=== PATIENT | female | born 1985 | race Caucasian/White ===

== ENCOUNTER → 2019-05-31 | Outpatient (CLI) | payer SELFPAY ==
--- NOTE | 2019-05-31 14:57 | RADIOLOGY REPORT (SQ) ---
EXAM DESCRIPTION: U/S [id number] TRNABD 1GES W/ODOP COMPLETED DATE/TIME: 05/31/2019 2:31 pm REASON FOR STUDY: ENCTR FOR SUPERVISION OF OTHER NORMAL , FIRST TRIMESTER (Z34.81) Z34.81 ENCOUNTER FOR SUPRVSN OF NORMAL , FIRST TRIM COMPARISON: None. TECHNIQUE: Transvaginal static and realtime grayscale images acquired of the pelvis. Additional vivian cted spectral and color Doppler images recorded. All images stored on PACs. CLINICAL AGE: Unknown. bHCG: Not available. LIMITATIONS: None. FINDINGS: UTERUS: No masses. No anomalies. GESTATIONAL SAC: Possible gestational sac, corresponding to a 5 week 2 day gestation. YOLK SAC: No. POLE: None present. RIGHT ADNEXA: Normal ovary with normal vascular flow. No adnexal free fluid. No adnexal masses. LEFT ADNEXA: Normal ovary with normal vascular flow. No adnexal free fluid. Complex cyst measuring 3.4 x 3.9 cm with a solid component along the wall. FREE FLUID: Free fluid in the posterior cul-de-sac. OTHER: No other significant finding. IMPRESSION: POSSIBLE EARLY INTRAUTERINE . BHCG LEVEL NOT AVAILABLE FOR CORRELATION WITH US FINDINGS. CONSIDER F/U BHCG AND/OR ULTRASOUND FOR VERIFICATION AND TO EXCLUDE ECTOPIC . FREE FLUID IS PRESENT IN THE POSTERIOR CUL-DE-SAC. THERE IS ALSO A COMPLEX CYST IN THE LEFT OVARY WI TH A SOLID COMPONENT. THIS REQUIRES FOLLOW-UP WELL. Trimester of : First trimester - 0 to 13 weeks. TECHNICAL DOCUMENTATION: JOB ID: [id number] [employer]- All Rights Reserved Reading location - IP/workstation name: [email or web address]
== END ==
LOC: RAD 13:52
PROVIDERS: ATTEND Midwife
DX: Z34.81 Encounter for supervision of other normal pregnancy, first trimester (principal)
CPT/HCPCS: 76801

== ENCOUNTER 2019-06-11 16:44 | Emergency (ER) | payer MEDICAID ==
[2019-06-11] MEDS ORDERED: DIPH/PERTUSS(ACELL)/TETANUS VAC/PF 0.5 ML SYR (>=10YO) IM ONE (16:54)
--- NOTE | 2019-06-11 16:55 | ER Document Report ---
ED Medical Screen (RME) - General Chief Complaint: Laceration Stated Complaint: FINGER LACERATION Time Seen by Provider: 06/11/19 16:54 Primary Care Provider: ROMEO MO CNM [Primary Care Provider] - Follow up as needed Mode of Arrival: Ambulatory Information source: Patient Notes: Patient was cutting bread yesterday slipped and cut her left hand. Injury occurred around 730 yesterday evening. Patient's tetanus is not currently up-to-date. No active bleeding. I have greeted and performed a rapid initial assessment of this patient. A comprehensive ED assessment and evaluation of the patient, analysis of test results and completion of the medical decision making process will be conducted by additional ED providers. TRAVEL OUTSIDE OF THE [place] IN LAST 30 DAYS: No Physical Exam - Vital signs Vitals: Temp Pulse Resp BP Pulse Ox 98.0 F 84 16 126/64 H 100 06/11/19 16:47 06/11/19 16:47 06/11/19 16:47 06/11/19 16:47 06/11/19 16:47 - General General appearance: Appears well, Alert Notes: 1.5 cm lack to the medial aspect of the left second metacarpal Course - Vital Signs Vital signs: Temp Pulse Resp BP Pulse Ox 98.0 F 84 16 126/64 H 100 06/11/19 16:47 06/11/19 16:47 06/11/19 16:47 06/11/19 16:47 06/11/19 16:47 Doctor's Discharge - Discharge Referrals: ROMEO MO CNM [Primary Care Provider] - Follow up as needed
[2019-06-11] MEDS ORDERED: LIDOCAINE 0.5%/EPINEPHRINE INJ 50 ML VIAL INJ ONE (17:21)
[2019-06-11] MEDS ORDERED: ACETAMINOPHEN 325 MG TABLET PO ONE (17:23)
--- NOTE | 2019-06-11 18:42 | ER Document Report ---
ED Wound - General Chief Complaint: Laceration Stated Complaint: FINGER LACERATION Time Seen by Provider: 06/11/19 16:54 Primary Care Provider: ROMEO MO CNM [NO LOCAL MD] - Follow up as needed Mode of Arrival: Ambulatory Notes: Patient is a 34-year-old female presents to the emergency department with a laceration to the proximal aspect of her lateral left index finger. States she sustained this laceration approximately 1930 last evening. States she was trying to cut something with a cutting board in her hand slipped. Patient voices she did place a bandage around it and thought that the bleeding was stopped overnight. States this morning the bleeding continued. States she could not get the bleeding to stop which is why she never really presented to the emergency room. Upon my assessment bleeding has ceased. Patient denies taking any anticoagulant medications. Patient voices she is unsure when her last tetanus was updated, states staff in the emergency department did update her tetanus. Patient is denying all other complaints. TRAVEL OUTSIDE OF THE [place] IN LAST 30 DAYS: No - Related Data Home Medications: Vitamins Past Medical History - General Information source: Patient - Social History Smoking Status: Current Every Day Smoker Family History: Reviewed & Not Pertinent Patient has suicidal ideation: No Patient has homicidal ideation: No Review of Systems - Review of Systems Constitutional: denies: Fever EENT: No symptoms reported Cardiovascular: No symptoms reported Respiratory: No symptoms reported Gastrointestinal: No symptoms reported Genitourinary: No symptoms reported Female Genitourinary: No symptoms reported Musculoskeletal: No symptoms reported Skin: See HPI Hematologic/Lymphatic: No symptoms reported Neurological/Psychological: No symptoms reported Physical Exam - Vital signs Vitals: Temp Pulse Resp BP Pulse Ox 98.0 F 84 16 126/64 H 100 06/11/19 16:47 06/11/19 16:47 06/11/19 16:47 06/11/19 16:47 06/11/19 16:47 - Notes Notes: GENERAL: Alert, interacts well. No acute distress. HEAD: Normocephalic, atraumatic. EYES: Pupils equal, round, and reactive to light. Extraocular movements intact. ENT: Oral mucosa moist, tongue midline. NECK: Full range of motion. Supple. Trachea midline. LUNGS: Clear to auscultation bilaterally, no wheezes, rales, or rhonchi. No respiratory distress. HEART: Regular rate and rhythm. No murmur ABDOMEN: Soft, non-tender. Non-distended. Bowel sounds present in all 4 quadrants. EXTREMITIES: Moves all 4 extremities spontaneously. No edema, normal radial and dorsalis pedis pulses bilaterally. No cyanosis. Full range of motion MCP, PIP, DIP joints noted left index finger. Capillary refill less than 2 seconds distally left index finger. BACK: no cervical, thoracic, lumbar midline tenderness. No saddle anesthesia, normal distal neurovascular exam. NEUROLOGICAL: Alert and oriented x3. Normal speech. cranial nerves II through XII grossly intact PSYCH: Normal affect, normal mood. SKIN: Warm, dry, normal turgor. Laceration noted horizontally near MCP joints laterally left index finger. Course - Re-evaluation Re-evalutation: 06/11/19 18:42 Laceration repaired, will place patient on antibiotics as discussed has been opened for an extended period of time. Was irrigated with copious amounts of normal saline solution. Bleeding initially noted, bleeding easily controlled. Discussed with patient at length signs and symptoms of infection risks and when to return to the emergency room. Patient stable for discharge. - Vital Signs Vital signs: Temp Pulse Resp BP Pulse Ox 98.0 F 84 16 126/64 H 100 06/11/19 16:47 06/11/19 16:47 06/11/19 16:47 06/11/19 16:47 06/11/19 16:47 Procedures - Laceration/Wound Repair Left index finger Wound length (cm): 2 Wound's Depth, Shape: Superficial Laceration pre-procedure: Sterile PPE donned, Sterile drapes applied, Shur-Clens applied Anesthetic type: 1% Lidocaine w/epi Volume Anesthetic (mLs): 5 Wound explored: Clean Irrigated w/ Saline (mLs): 1,000 Wound Debrided: Extensive Wound Repaired With: Sutures Suture Size/Type: 4:0, Ethilon Number of Sutures: 3 Post-procedure wound care: Sterile dressing applied Post-procedure NV exam normal: Yes Complications: No Discharge - Discharge Clinical Impression: Finger laceration Qualifiers: Encounter type: initial encounter Finger: index finger Damage to nail status: without damage Foreign body presence: without foreign body Laterality: left Qualified Code(s): S61.211A - Laceration without foreign body of left index finger without damage to nail, initial encounter Condition: Stable Disposition: HOME, SELF-CARE Instructions: Laceration Care ([facility]), Prophylactic Antibiotic ([facility]), Tetanus Immunization Given ([facility]), Soap Cleansing ([facility]) Additional Instructions: As we discussed you have been seen and treated in the emergency department for a laceration to your left index finger. The sutures do need to be removed in the next 10-14 business days. Please take antibiotics as we discussed. Please continue to wash the wound for redness, swelling, discharge, fever. These could be signs of infection and you should return to the emergency department. Prescriptions: Cephalexin Monohydrate [Keflex 500 mg Capsule] 500 mg PO BID 7 Days #14 capsule Referrals: ROMEO MO CNM [NO LOCAL MD] - Follow up as needed
[2019-06-11 18:59] VITALS: BP 128/65
== END 2019-06-11 18:59 | disposition home or self-care (01) ==
LOC: ER 16:44
PROC: 0HQGXZZ Repair Left Hand Skin, External Approach (ICD-10-PCS; principal; 2019-06-11)
DX: S61.211A Laceration without foreign body of left index finger without damage to nail, initial encounter (principal); W26.0XXA Contact with knife, initial encounter; Y93.G1 Activity, food preparation and clean up; F17.200 Nicotine dependence, unspecified, uncomplicated
CPT/HCPCS: 99282; 90471; 90715; 12001; J3490 ×2

== ENCOUNTER 2020-01-12 20:52 | Outpatient (CLI) | payer MEDICAID ==
[2020-01-12 21:44] LABS: APPEARANCE,URINE CLEAR; BILIRUBIN,URINE NEGATIVE (NEGATIVE); COLOR,URINE STRAW; GLUCOSE, URINE NEGATIVE (NEGATIVE); KETONES,URINE NEGATIVE (NEGATIVE); LEUKOCYTE ESTERASE,URINE NEGATIVE (NEGATIVE); NITRITE,URINE NEGATIVE (NEGATIVE); PROTEIN,URINE NEGATIVE (NEGATIVE); URINE SPECIFIC GRAVITY 1.005; UROBILINOGEN,URINE NEGATIVE mg/dL (<2.0)
[2020-01-12 21:49] LABS: ABSOLUTE EOSINOPHILS # (AUTO) 0.2 10^3/uL (0.0-0.6); ABSOLUTE LYMPHOCYTES (AUTO) 2.2 10^3/uL (0.5-4.7); ABSOLUTE MONOCYTES (AUTO) 0.8 10^3/uL (0.1-1.4); ABSOLUTE NEUT (AUTO) 4.6 10^3/uL (1.7-8.2); BASOPHILS % (AUTO) 0.5 % (0-2); HEMATOCRIT 32.1 % (36.0-47.0); LYMPHOCYTES % (AUTO) 27.8 % (13-45); MEAN CORPUSCULAR HEMOGLOBIN 31.4 pg (27.0-33.4); MEAN CORPUSCULAR HGB CONC 34.3 g/dL (32.0-36.0); MEAN CORPUSCULAR VOLUME 92 fl (80-97); MONOCYTES % (AUTO) 10.6 % (3-13); PLATELET COUNT 282 10^3/uL (150-450); RED CELL DISTRIBUTION WIDTH 14.1 % (11.5-14.0); SEGMENTED NEUTROPHILS % (AUTO) 59.1 % (42-78); TOTAL CELLS COUNTED % (AUTO) 100 %; WHITE BLOOD COUNT 7.8 10^3/uL (4.0-10.5)
[2020-01-12 22:01] LABS: UR PRO/CREAT RATIO RESULT 0.4 mg/mg (0.0-0.2); URINE CREATININE 35.1 mg/dL (16-327); URINE PROTEIN 15.7 mg/dL (<12)
[2020-01-12 22:06] LABS: ALBUMIN 2.9 g/dL (3.5-5.0); ALKALINE PHOSPHATASE 116 U/L (38-126); ANION GAP 7 (5-19); ASPARTATE AMINO TRANSFERASE 20 U/L (14-36); BILIRUBIN,TOTAL 0.2 mg/dL (0.2-1.3); BLOOD UREA NITROGEN 8 mg/dL (7-20); CARBON DIOXIDE 19 mmol/L (22-30); CHLORIDE 107 mmol/L (98-107); GLUCOSE 88 mg/dL (75-110); POTASSIUM 3.6 mmol/L (3.6-5.0); TOTAL PROTEIN 5.7 g/dL (6.3-8.2)
[2020-01-12 22:13] LABS: URINE AMPHETAMINES SCREEN NEGATIVE; URINE BARBITURATES SCREEN NEGATIVE; URINE BENZODIAZEPINES SCREEN NEGATIVE; URINE COCAINE SCREEN NEGATIVE; URINE MARIJUANA (THC) SCREEN NEGATIVE; URINE METHADONE SCREEN NEGATIVE; URINE PHENCYCLIDINE SCREEN NEGATIVE
--- NOTE | 2020-01-12 22:31 | Non Stress Test Report ---
Non Stress Test Datetime Report Generated by CPN: 01/12/2020 22:31 DEMOGRAPHIC EGA NST: 37.6 INDICATION Indication for Study (NST) Other: Labor check MONITORING Monitor Explained: Monitor Explained; Test Explained; Patient Verbalized Understanding Time on Monitor: 01/12/2020 21:10 Time off Monitor: 01/12/2020 21:53 NST Duration: 43 NST INTERVENTIONS NST Interventions: PO Hydration Physician Notified NST: Dr. Evans BABY A: [id number] BABY A Movement : Present Contraction Frequency : None FHR Baseline : 125 Accelerations : 15X15 Decelerations : None Variability : Moderate 6-25bpm NST Review: Meets Criteria for Reactive NST NST Review and Verified By : ISRA Leonard Results: Reactive NST REPORT Report Trigger: Send Report
== END 2020-01-12 22:26 | disposition home or self-care (01) ==
LOC: LC 20:52
PROVIDERS: ATTEND Student in an Organized Health Care Education/Training Program
DX: O47.1 False labor at or after 37 completed weeks of gestation (principal); O13.3 Gestational [pregnancy-induced] hypertension without significant proteinuria, third trimester; Z3A.37 37 weeks gestation of pregnancy
CPT/HCPCS: 36415; 80053; 80307; 81005; 82570; 83615; 84156; 84550; 85025

== ENCOUNTER 2020-01-14 08:03 | Inpatient (IN) | payer MEDICAID ==
[2020-01-14 09:25] LABS: 24 HOUR URINE PROTEIN RESULT 420 mg/day (42-225)
--- NOTE | 2020-01-14 09:45 | Admission Physical ---
Datetime Report Generated by CPN: 01/14/2020 09:45 CURRENT ADMISSION Chief Complaint: Signs/Symptoms Gestational HTN Chief Complaint Other: at 38.1 wks EGA with new diagnosis of mild preeclampsia diagnosed by 24 hour urine today. SHe has hx of two prior CS and desires BTL this time. TOday she complains of ROMANO, which is not improved with tylenol last night. No CP, SOB, RUQ pain, n/v or vision changes. SHe does reports swelling in legs and now in hands. Admit Impression : Repeat Section Admit Plan: Admit to Unit ALLERGIES Medication Allergies: Yes Medication Allergies: ibuprofen (01/12/2020) Latex: No Latex Allergies OBSTETRICAL HISTORY EDC: 01/27/2020 00:00 : 3 Para: 2 Term: 2 : 0 SAB: 0 IAB: 0 Ectopic: 0 Livin Cesareans: 2 VBACs: 0 Multiple Births: 0 Gestational Diabetes: No Rh Sensitization: No Incompetent Cervix: No LIDIA: No Infertility: No ART Treatment: No Uterine Anomaly: No IUGR: No Hx Previous C/S: No Macrosomia: No Hx Loss/Stillborn: No PIH: No Hx : No Placenta Previa/Abruption: No Depression/PP Depression: Yes PTL/PROM: No Post Hemorrhage: No Obstetrical History Comments: G1: 2013, 39 wks 7lbs 9 oz female G2: 2009, 40 wks, 7lbs 1 oz male, G3: current SEE RECORDS Alcohol: No Marijuana : No Cocaine: No Other Illicit Drugs: No Cigarettes: Current Everyday Smoker. [id number] MEDICAL HISTORY Diabetes: No Blood Transfusion: Yes Pulmonary Disease (Asthma, TB): No Breast Disease: No Hypertension: Yes Windows Vmware Engineer Surgery: Yes Heart Disease: No Hosp/Surgery: Yes Autoimmune Disorder: No Anesthetic Complications: No Kidney Disease: No Abnormal Pap Smear: No Neuro/Epilepsy: No Psychiatric Disorders: Yes Other Medical Diseases: No Hepatitis/Liver Disease: No Significant Family History: No Varicosities/Phlebitis: No Trauma/Violence : No Thyroid Dysfunction: No Medical History Comments: depression, anxiety INFECTIOUS HISTORY Gonorrhea: No Genital Herpes: No Chlamydia: No Tuberculosis: No Syphilis: No Hepatitis: No HIV/AIDS Exposure: No Rash or Viral Illness: No HPV: No PHYSICAL EXAM General: Normal HEENT: Normal Neurologic: Normal Thyroid: Normal Heart: Normal Lungs: Normal Breast: Normal Back: Normal Abdomen: Normal Genitourinary Exam: Normal Extremities: Abnormal DTRs: Normal Pelvic Type: Adequate Physical Exam Comments: BLE with +1 edema. NO clonus. DTR BLE are 2/4 FETUS A EGA: 38.1 Monitoring: External US FHR- Baseline: 125 Variability: Moderate 6-25bpm Accelerations: 15X15 Decelerations: None FHR Category: Category I Presentation: Vertex Admit Comment: at 38.1 wks with new onset preeclampsia, mild-- Dx by 24 hour urine protein of 420 and elevated blood pressures. Hx prior CS x2 and undesired fertility. Desires Tubal ligation. Plan for RCS and BTL -Admit to LDR -NPO since 0500 ( black coffee). Begin IVF bolus 1 liter LR and then 125cc/hr -Admitting labs with PIH labs ( blood only) -CEFM -Ancef 2 gms IV prior to OR -Abdomial prep -Plan for repeat CS and BTL PLANS FOR LABOR AND DELIVERY Labor and Delivery: None Pain Management: Spinal Feeding Preference: Breast Benefit of Breast Feed Discussed: Yes Circumcision: N/A INFORMED CONSENT Informed Consent Obtained: Section Delivery; Sterilization; Risks, Benefits and Alternatives Discussed Signature: with User ID: [email or web address] : with User ID: [email or web address]
[2020-01-14] MEDS ORDERED: CEFAZOLIN 2 GM/D5W RTU 2 GM/50 ML RTUPB IV ONE (09:47)
[2020-01-14] MEDS ORDERED: RINGERS SOLUTION,LACTATED 1,000 ML IV ONE (09:47)
[2020-01-14] MEDS ORDERED: CITRIC ACID/SODIUM CITRATE ORAL SOLN 15 ML UDCUP ONE (10:00)
[2020-01-14] MEDS ORDERED: CEFAZOLIN 1 GM/D5W RTU 2 GM/100 ML RTUPB IV ONE (10:00)
[2020-01-14 10:03] LABS: ABSOLUTE EOSINOPHILS # (AUTO) 0.1 10^3/uL (0.0-0.6); ABSOLUTE LYMPHOCYTES (AUTO) 1.7 10^3/uL (0.5-4.7); ABSOLUTE MONOCYTES (AUTO) 0.6 10^3/uL (0.1-1.4); ABSOLUTE NEUT (AUTO) 4.8 10^3/uL (1.7-8.2); BASOPHILS % (AUTO) 0.4 % (0-2); HEMATOCRIT 34.2 % (36.0-47.0); HEMOGLOBIN 11.4 g/dL (12.0-15.5); LYMPHOCYTES % (AUTO) 23.6 % (13-45); MEAN CORPUSCULAR HEMOGLOBIN 30.8 pg (27.0-33.4); MEAN CORPUSCULAR HGB CONC 33.3 g/dL (32.0-36.0); MEAN CORPUSCULAR VOLUME 93 fl (80-97); MONOCYTES % (AUTO) 8.4 % (3-13); PLATELET COUNT 277 10^3/uL (150-450); SEGMENTED NEUTROPHILS % (AUTO) 65.6 % (42-78); TOTAL CELLS COUNTED % (AUTO) 100 %; WHITE BLOOD COUNT 7.4 10^3/uL (4.0-10.5)
[2020-01-14] MEDS ORDERED: OXYTOCIN 10 UNIT/ML VIAL ONE (10:36)
[2020-01-14] MEDS ORDERED: FENTANYL CITRATE INJ/PF 100 MCG/2 ML AMPUL ONE (10:36)
[2020-01-14] MEDS ORDERED: PHENYLEPHRINE HCL INJ/PF 10 MG/1 ML SDV ONE (10:36)
[2020-01-14] MEDS ORDERED: KETOROLAC TROMETHAMINE INJ/PF 30 MG/1 ML SDV ONE (10:36)
[2020-01-14] MEDS ORDERED: ACETAMINOPHEN 1,000 MG/100 ML RTUPB IV ONE (10:37)
[2020-01-14] MEDS ORDERED: ONDANSETRON HCL INJ/PF 4 MG/2 ML SDV ONE (10:37)
[2020-01-14] MEDS ORDERED: OXYTOCIN/0.9 % SODIUM CHLORIDE 30 UNIT/500 ML RTUINJ ONE (12:08)
[2020-01-14] MEDS ORDERED: MORPHINE SULFATE 10 MG/ML INJ ONE ×2 (13:53→18:21)
--- NOTE | 2020-01-14 14:03 | Delivery Summary ---
Del Sum A-C Datetime Report Generated by CPN: 01/14/2020 14:03 DELIVERY PERSONNEL DELIVERY PERSONNEL: [id number] Delivery Doctor:: Mariposa Caputo MD Anesthesiologist:: Imtiaz Shea MD QUILT STUFFER:: Fifi Oglesby QUILT STUFFER Spectacle Truer:: Zahira Morgan RN Neonatal Nurse Practitioner:: ASTRID Lee Nursery Nurse:: Nusrat Christianson RN Real Time Analyst/BUSINESS RELATIONSHIP MANAGER: [facility] Real Time Analyst/BUSINESS RELATIONSHIP MANAGER: Johanne Kern, COMMERCIAL PROPERTY ADMINISTRATOR MATERNAL INFORMATION Delivery Anesthesia: Spinal Medications After Delivery: Pitocin 30 Units in 500ml NS/D5W Delivery QBL: 1440 Maternal Complications: None LABOR SUMMARY EDC: 01/27/2020 00:00 No. Babies in Womb: 1 Attempted: No Labor Anesthesia: None LABOR INFORMATION Reason for Induction: Not Applicable Oxytocin: N/A Group B Beta Strep: negative Steroids Given: None Reason Steroids Not Administered: Not Applicable MEMBRANES Membranes Rupture Method: Artificial Rupture of Membranes: 01/14/2020 11:14 Length of Rupture (hr): 0.05 Amniotic Fluid Color: Clear Amniotic Fluid Amount: Large Amniotic Fluid Odor: Normal STAGES OF LABOR Stage 3 hr: 0 Stage 3 min: 4 VAGINAL DELIVERY Episiotomy: None Laceration #1: None Laceration Repair: Not Applicable Sponge Count Correct: N/A Sharps Count Correct: N/A CSECTION DELIVERY Primary Indication: Repeat Elective CSection Urgency: Non-Scheduled CSection Incidence: Repeat Labor: No Labor Elective: Elective CSection Incision: Lower Uterine Transverse Sterilization Procedure: Ring and Clip BABY A INFORMATION Delivery Date/Time: 01/14/2020 11:17 Method of Delivery: Nurse Controlled Delivery: No Born in Route : No : N/A Forceps: N/A Vacuum Extraction: N/A Shoulder Dystocia : No PRESENTATION/POSITION BABY A Presentation: Breech Cephalic Presentation: N/A Breech Presentation: Double Footling PLACENTA INFORMATION BABY A Placenta Delivery Time : 01/14/2020 11:21 Placenta Method of Delivery: Manual Removal Placenta Status: Delivered SCORES BABY A Heart Rate 1 min: Slow, Below 100 bpm Resp Effort 1 min: Absent Reflex Irritability 1 min: Grimace Muscle Tone 1 min: Flaccid Color 1 min: Blue/Pale Resuscitation Effort 1 min: Tactile Stimulation; Oxygen; PPV/NCPAP SCORE 1 MIN: 2 Heart Rate 5 min: >100 bpm Resp Effort 5 min: Good Cry Reflex Irritability 5 min: Cough or Sneeze or Pulls Away Muscle Tone 5 min: Active Motion Color 5 min: Body [place], Extremities Blue SCORE 5 MIN: 9 INFANT INFORMATION BABY A Gestational Age at Delivery: 38.1 Gestational Status: Early Term- 37- 38.6 Weeks Infant Outcome : Liveborn Infant Condition : Stable Infant Sex: Female IDENTIFICATION BABY A Verification Date/Time: 01/14/2020 11:48 ID Band Number: [id number] Mother's Name Verified: Yes RN Verifying Infant: B Baidy RN Additional Verifying Personnel: T Kadeem RN WEIGHT/LENGTH BABY A Infant Birthweight (gm): 3000 Weight (lb): 6 Weight (oz): 10 Infant Length (in): 18.00 Length (cm): 45.72 CORD INFORMATION BABY A No. Cord Vessels: 3 Nuchal Cord : N/A Cord Blood Taken: Yes-For Eval (Mom's Blood Type - or O+) BABY B INFORMATION : N/A
[2020-01-14] MEDS ORDERED: SIMETHICONE 80 MG TAB.CHEW PO PRN (14:10)
[2020-01-14] MEDS ORDERED: OXYCODONE-ACETAMINOPHEN 5-325 MG TABLET PO PRN (14:10)
[2020-01-14] MEDS ORDERED: OXYTOCIN/0.9 % SODIUM CHLORIDE 30 UNIT/500 ML RTUINJ IV PRN (14:10)
[2020-01-14] MEDS ORDERED: ACETAMINOPHEN 325 MG TABLET PO PRN (14:10)
[2020-01-14] MEDS ORDERED: PROMETHAZINE HCL INJ 25 MG/1 ML VIAL IV PRN (14:10)
[2020-01-14] MEDS ORDERED: HYDROMORPHONE HCL INJ/PF 2 MG/ML AMPULE IV PRN (14:10)
[2020-01-14] MEDS ORDERED: RINGERS SOLUTION,LACTATED 1,000 ML IV PRN (14:10)
[2020-01-14] MEDS ORDERED: DIPH/PERTUSS(ACELL)/TETANUS VAC/PF 0.5 ML SYR (>=10YO) IM PRN (14:10)
[2020-01-14] MEDS ORDERED: MEASLES,MUMPS&RUBELLA VACC/PF 0.5 ML VIAL SUBCUT PRN (14:10)
[2020-01-14] MEDS: RINGERS SOLUTION,LACTATED 1,000 ML IV PRN ×2 (14:30→22:17)
--- NOTE | 2020-01-14 14:51 | Operative Report ---
Operative Report DATE OF SURGERY: 01/14/20 PREOPERATIVE DIAGNOSIS: Intrauterine pregancy at 38.1 wks EGA. Mild preeclamps ia, newly diagnosed. History of prior section. Unwanted fertility. Obesity POSTOPERATIVE DIAGNOSIS: Same as above with addition of adhesion between omentum and bladder OPERATION: Repeat section and bilateral tubal ligation SURGEON: KRISTAN MURRAY ANESTHESIA: Spinal TISSUE REMOVED OR ALTERED: Placenta COMPLICATIONS: None ESTIMATED BLOOD LOSS: 700 INTRAOPERATIVE FINDINGS: Adhesions between omentum and bladder along with anterior abdominal wall near bladder. Uterus normal, bilateral fallopian tubes and ovaries appear normal. Viable female infant in footling breech back down. Placenta occurs grossly normal. PROCEDURE: IV fluids: per anesthesia record Urinary output: 225 cc Position: To recovery room in stable condition Description of procedure: The patient was taken to the operating room and spinal anesthesia was administered and found to be adequate. She was then placed on the OR table in the supine position with a slight leftward tilt. Patient was prepped and draped in usual sterile fashion. Ancef 2 gms was given IV prior to the procedure for infection prophylaxis. Timeout was taken. A Pfannenstiel skin incision was then made approximately 3 cm above the pubic symphysis and carried down to level the rectus fascia. The rectus fascia was then nicked in the midline with a scalpel and the fascial incision was extended laterally with use of curved Baker scissors. Scar tissue encountered and taken down sharply. Bovie for control of small bleeding. The rectus fascia was then grasped with 2 Kocker clamps elevated and the underlying rectus muscle was dissected off both bluntly and sharply. Scar tissue noted as above. Any bleeding controlled with cautery. The rectus muscles were then split in the midline and the peritoneum was entered. The peritoneal incision was then extended by manually stretching the peritoneum. The bladder blade was positioned. Bladder flap created and bladder blade replaced. The bladder was noted to be out of harm's way. A scalpel was then used in the lower uterine for the hysterotomy, slowly until amniotomy was obtained a large amount of fluid was noted. The uterine incision was then manually stretched. The infant was noted to be in footling breech postion back down. Feet and legs delivered with minimal difficulty and bandage scissors were used to extend the incision laterally on the right. Once delivered to the pelvis, the was rotated back up and each arm was delivered by flexing the arm at the elbow. The head was then delivered easily. The cord was cut clamped and the infant was h anded off to the nurse awaiting. The placenta was manually delivered. Using a lap gauze the uterus was cleared of all clots and debris. The uterus was left in place and an Sridhar retractor was placed. The uterine incision was then closed with 0 Chromic suture in a running locked fashion. A second layer of the same suture was used in a running locked imbricated fashion. The uterine incision was inspected and noted to be hemostatic. The right fallopian tube was identified and traced to the fimbriated end. A filshie clip was placed approximately 2 cm from the uterine cornu. Clip surrounded the tube in its entirety. Blanching noted and hemostasis. The left fallopian tube was identified and traced to the fimbriated end. A filshie clip was placed approximately 2 cm from the uterine cornu. Clip surrounded the tube in its entirety. Blanching noted and hemostasis. Warm saline irrigation was used to clear all clots and debris from the abdomen. The uterine incision was inspected once more and noted to remain hemostatic. The Sridhar retractor was removed and the peritoneum was closed with 2-0 chromic in a running fashion. The rectus muscles were then reapproximated and the rectus fascia was closed with a #1 PDS in a running fashion. The subcutaneous tissue was then inspected and any bleeding was controlled with Bovie electrocautery. The subcutaneous tissue was then closed with 2-0 Plain Gut suture in a running fashion. The skin was then closed with 3-0 Monocryl in a running subcuticular fashion. The skin incision was then clean dried and Dermabond was applied over the skin incision. All instrument sponge and needle counts were correct x3 for the procedure the patient tolerated the procedure well. She will proceed to recovery room in stable conditionI
--- NOTE | 2020-01-14 14:54 | PDOC DELIVERY SUMMARY ---
Delivery Summary - Maternal Hx : III Hx Para: II Risk Factors: Previous , Pre-Eclampsia Fluids: Clear - Delivery Labor: Not In Labor Presentation: Breech Heart Rate Monitoring: Externally Support Person Present: No : Repeat Placenta: Within Normal Limits Number of Vessels (Cord): 3 Nuchal Cord: No Estimated Blood Loss: 700cc - Medications Type of Anesthesia:: Spinal - Delivery Personnel MD: KRISTAN MURRAY
[2020-01-14] MEDS: OXYCODONE-ACETAMINOPHEN 5-325 MG TABLET PO PRN ×2 (15:55→22:16)
[2020-01-14] MEDS: DOCUSATE SODIUM 100 MG CAPSULE PO SCH (18:27)
[2020-01-14] MEDS ORDERED: MORPHINE SULFATE 10 MG/ML INJ IV PRN (18:53)
[2020-01-14] MEDS: MORPHINE SULFATE 10 MG/ML INJ IV PRN (23:40)
[2020-01-15] MEDS: MORPHINE SULFATE 10 MG/ML INJ IV PRN ×2 (03:22→06:29)
[2020-01-15 07:05] LABS: HEMATOCRIT 33.9 % (36.0-47.0); HEMOGLOBIN 11.2 g/dL (12.0-15.5); MEAN CORPUSCULAR HEMOGLOBIN 31.1 pg (27.0-33.4); MEAN CORPUSCULAR HGB CONC 33.1 g/dL (32.0-36.0); MEAN CORPUSCULAR VOLUME 94 fl (80-97); PLATELET COUNT 266 10^3/uL (150-450); RED BLOOD COUNT 3.62 10^6/uL (3.72-5.28); RED CELL DISTRIBUTION WIDTH 14.2 % (11.5-14.0)
[2020-01-15] MEDS ORDERED: DIPHENHYDRAMINE HCL 25 MG CAPSULE PO SCH (09:45)
--- NOTE | 2020-01-15 10:14 | PDOC PROGRESS REPORT ---
Subjective-OB Progress Note for:: 01/15/20 Subjective: reports bleeding slowing, pain controlled now with morphine. states she has listed ibuprofen as an allergy but it only causes stomach pain. states percocet does not help, willing to try norco. Physical Exam (OB) Vital Signs: Temp Pulse Resp BP Pulse Ox 97.9 F 77 18 126/80 H 100 01/15/20 07:59 01/15/20 07:59 01/15/20 07:59 01/15/20 07:59 01/15/20 07:59 Intake & Output 01/14/20 01/15/20 01/16/20 06:59 06:59 06:59 Intake Total 973 Output Total 1225 Balance -252 Weight 107.3 kg - PIH/Pre-Eclampsia Clonus: Negative Headache: Absent Epigastric Pain: No Visual Changes: No - Dressing Removed: Yes Incision: Open, Draining - scant serosanguinous, Well Approximated - Abdomen Description: Tender, Soft, Round Hernia Present: No Fundal Description: Firm, Midline Fundal Height: u/u - u/2 - Abdominal Inspection: Other - rash (warm to touch, not itchy), not under where dsg was removed but all around. dr vilchis in to inspect. not continuing to back bu a little on thighs, benadryl po and cortisone cream ordered Distension: No distension - Extremities Lower extremities: Roger's sign - neg Calf: Normal, Nontender Objective-Diagnostic Laboratory: 01/15/20 06:35 01/14/20 01/15/20 09:47 06:35 WBC 7.0 RBC 3.62 L Hgb 11.2 L Hct 33.9 L MCV 94 MCH 31.1 MCHC 33.1 RDW 14.2 H Plt Count 266 Blood Type O POSITIVE Antibody Screen NEGATIVE Assessment and Plan(PN) - Time Spent with Patient Time with patient: Less than 15 minutes Medications reviewed and adjusted accordingly: Yes - Disposition Anticipated Discharge: Home Within: within 48 hours
[2020-01-15] MEDS: PRENATAL VITAMIN W DHA CAPSULE PO SCH (11:01)
[2020-01-15] MEDS: NAPROXEN 250 MG TABLET PO SCH ×2 (11:01→17:01)
[2020-01-15] MEDS: FERROUS SULFATE 325 MG TABLET PO SCH (11:04)
[2020-01-15] MEDS: DOCUSATE SODIUM 100 MG CAPSULE PO SCH ×2 (11:05→17:14)
[2020-01-15] MEDS: HYDROCORTISONE 1% CREAM 28.35 GM TP PRN ×2 (11:06→20:48)
[2020-01-15] MEDS: DIPHENHYDRAMINE HCL 25 MG CAPSULE PO PRN ×2 (11:25→19:20)
[2020-01-15] MEDS: HYDROCODONE/ACETAMINOPHEN 10-325 MG TABLET PO PRN (12:17)
[2020-01-15] MEDS ORDERED: NYSTATIN CREAM 15 GM ONE (20:42)
[2020-01-15] MEDS: NYSTATIN CREAM 15 GM TP SCH (20:48)
[2020-01-16] MEDS: DIPHENHYDRAMINE HCL 25 MG CAPSULE PO SCH ×2 (00:45→05:57)
[2020-01-16] MEDS: HYDROCODONE/ACETAMINOPHEN 10-325 MG TABLET PO PRN (03:10)
[2020-01-16 07:19] VITALS: BP 125/79
--- NOTE | 2020-01-16 09:24 | PDOC PROGRESS REPORT ---
Subjective-OB Progress Note for:: 01/16/20 Physical Exam (OB) Vital Signs: Temp Pulse Resp BP Pulse Ox 98.0 F 76 18 125/79 100 01/16/20 07:06 01/16/20 07:06 01/16/20 07:06 01/16/20 07:06 01/16/20 07:06 Intake & Output 01/15/20 01/16/20 01/17/20 06:59 06:59 06:59 Intake Total 973 Output Total 1225 Balance -252 Weight 107.3 kg - PIH/Pre-Eclampsia DTR's: 2 + Clonus: Negative Headache: Present Epigastric Pain: No Visual Changes: No - Dressing Removed: Yes Incision: Well Approximated - Lochia Lochia Amount: Scant < 10 ml Lochia Color: Rubra/Red - Abdomen Description: Tender, Soft Hernia Present: No Bowel Sounds: Normoactive Flatus Presence: Present Stool: No Fundal Description: Firm, Midline Fundal Height: u/u - u/2 - Skin Skin Moisture: Dry Skin Color: Flushed Skin note:: Has erythema on low abdomen, upper thighs extending to low back. Uniform, warm to touch, dry. Objective-Diagnostic Laboratory: 01/15/20 06:35 Assessment and Plan(PN) - Time Spent with Patient Medications reviewed and adjusted accordingly: Yes - Disposition Anticipated Discharge: Home
[2020-01-16] MEDS: FERROUS SULFATE 325 MG TABLET PO SCH (09:52)
[2020-01-16] MEDS: NAPROXEN 250 MG TABLET PO SCH (09:52)
[2020-01-16] MEDS: DOCUSATE SODIUM 100 MG CAPSULE PO SCH (09:53)
[2020-01-16] MEDS: PRENATAL VITAMIN W DHA CAPSULE PO SCH (09:53)
[2020-01-16] MEDS: NYSTATIN CREAM 15 GM TP SCH (09:54)
--- NOTE | 2020-01-16 09:58 | PDOC PROGRESS REPORT ---
Subjective-OB Progress Note for:: 01/16/20 Subjective: Ready for discharge. Physical Exam (OB) Vital Signs: Temp Pulse Resp BP Pulse Ox 98.0 F 76 18 125/79 100 01/16/20 07:06 01/16/20 07:06 01/16/20 07:06 01/16/20 07:06 01/16/20 07:06 Intake & Output 01/15/20 01/16/20 01/17/20 06:59 06:59 06:59 Intake Total 973 Output Total 1225 Balance -252 Weight 107.3 kg - PIH/Pre-Eclampsia DTR's: 2 + Clonus: Negative Headache: Present Epigastric Pain: No Visual Changes: No - Dressing Removed: Yes Incision: Well Approximated - Lochia Lochia Amount: Scant < 10 ml Lochia Color: Rubra/Red - Abdomen Description: Tender, Soft Hernia Present: No Fundal Description: Firm, Midline Fundal Height: u/u - u/2 - Skin Skin note:: Telephone consult w Dr Berrios-will not use oral steroids for probable allergic dermatitis secondary cleansing agent used in OR. Will discharge patient on Be nadryl and Hydrocortisone Cream. Objective-Diagnostic Laboratory: 01/15/20 06:35 Assessment and Plan(PN) - Time Spent with Patient Medications reviewed and adjusted accordingly: Yes - Disposition Anticipated Discharge: Home
[2020-01-16] MEDS ORDERED: HYDROCORTISONE 1% CREAM 28.35 GM TP SCH (10:00)
--- NOTE | 2020-01-16 10:24 | PDOC DISCHARGE SUMMARY ---
Impression - Admit/DC Date/PCP Admission Date/Primary Care Provider: 01/14/20 09:35 Discharge Date: 01/16/20 - Discharge Diagnosis (1) Delivery by elective caesarean section Is this a current diagnosis for this admission?: Yes (2) Depression with anxiety Is this a current diagnosis for this admission?: Yes (3) Dermatitis Is this a current diagnosis for this admission?: Yes (4) History of bariatric surgery Is this a current diagnosis for this admission?: Yes (5) Is this a current diagnosis for this admission?: Yes (6) Smoker Is this a current diagnosis for this admission?: Yes (7) Double footling breech presentation Is this a current diagnosis for this admission?: Yes (8) Gestational hypertension Is this a current diagnosis for this admission?: Yes - Additional Information Resuscitation Status: Full Code Discharge Diet: Regular Discharge Activity: Activity As Tolerated, Balance Activity w/Rest, No Lifting Over 10 Pounds, No Lifting/Push/Pulling, Non-Ambulatory Child, Pelvic Rest, Slowly Increase Activity, No tub bath Referrals: RAYNE MO MD [ACTIVE STAFF] - Prescriptions: Hydrocodone/Acetaminophen [[place] 10-325 mg Tablet] 1 tab PO Q4HP PRN #20 tablet PRN Reason: Diphenhydramine HCl [Benadryl 25 mg Capsule] 25 mg PO Q6 #30 capsule Hydrocortisone [Hydrocortisone 1% Cream 28.35 gm] 1 applic TP TID #1 tube Naproxen [Naprosyn 250 mg Tablet] 500 mg PO BIDBS #30 tablet Home Medications: No122/Iron/Folic Acid [ Multi Tablet] 1 each PO DAILY 01/12/20 Vit C/Ascorb Sod/Multivit-Min [Emergen-C 500 mg Chewable Tab] 1,000 mg PO DAILY 01/12/20 Vit D3/Folic Acid/B2/B6/B12 [Folgard Tablet] 1 each PO ONCE PRN 01/12/20 Diphenhydramine HCl [Benadryl 25 mg Capsule] 25 mg PO Q6 #30 capsule 01/16/20 Hydrocodone/Acetaminophen [[place] 10-325 mg Tablet] 1 tab PO Q4HP PRN #20 tablet 01/16/20 Hydrocortisone [Hydrocortisone 1% Cream 28.35 gm] 1 applic TP TID #1 tube 01/16/20 Naproxen [Naprosyn 250 mg Tablet] 500 mg PO BIDBS #30 tablet 01/16/20 HPI Gestational Age: 38.1 wks Reason(s) for Admission: Ceasarean Section-Repeat Procedures: Ultrasound Intrapartum Procedure(s): : Low Cervical, Transverse Complication(s): Other Complication(s) Note: Allergic dermatitis secondary to surgical prep. Results Laboratory Results: WBC 7.0 10^3/uL (4.0-10.5) 01/15/20 06:35 RBC 3.62 10^6/uL (3.72-5.28) L 01/15/20 06:35 Hgb 11.2 g/dL (12.0-15.5) L 01/15/20 06:35 Hct 33.9 % (36.0-47.0) L 01/15/20 06:35 MCV 94 fl (80-97) 01/15/20 06:35 MCH 31.1 pg (27.0-33.4) 01/15/20 06:35 MCHC 33.1 g/dL (32.0-36.0) 01/15/20 06:35 RDW 14.2 % (11.5-14.0) H 01/15/20 06:35 Plt Count 266 10^3/uL (150-450) 01/15/20 06:35 Lymph % (Auto) 23.6 % (13-45) 01/14/20 09:47 Harrison % (Auto) 8.4 % (3-13) 01/14/20 09:47 Eos % (Auto) 2.0 % (0-6) 01/14/20 09:47 Baso % (Auto) 0.4 % (0-2) 01/14/20 09:47 Absolute Neuts (auto) 4.8 10^3/uL (1.7-8.2) 01/14/20 09:47 Absolute Lymphs (auto) 1.7 10^3/uL (0.5-4.7) 01/14/20 09:47 Absolute Monos (auto) 0.6 10^3/uL (0.1-1.4) 01/14/20 09:47 Absolute Eos (auto) 0.1 10^3/uL (0.0-0.6) 01/14/20 09:47 Absolute Basos (auto) 0.0 10^3/uL (0.0-0.2) 01/14/20 09:47 Seg Neutrophils % 65.6 % (42-78) 01/14/20 09:47 Ur 24 Hour Volume 3000 mL 01/13/20 03:28 Ur Total Protein 24 Hr 420 mg/day (42-225) H 01/13/20 03:28 Urine Total Protein 14.0 mg/dL (<12) H 01/13/20 03:28 Blood Type O POSITIVE 01/14/20 09:47 Antibody Screen NEGATIVE 01/14/20 09:47 Plan Plan of Treatment: Follow up with [facility] in 1 wk. Pelvic rest x 4-6 wks. Time Spent: Less than 30 Minutes
== END 2020-01-16 12:12 | disposition home or self-care (01) | DRG 785 ==
LOC: LC 08:03 → LR 09:35 → 2S 14:10
PROVIDERS: ADMIT Obstetrics & Gynecology; ATTEND Obstetrics & Gynecology
PROC: 10D00Z1 Extraction of Products of Conception, Low, Open Approach (ICD-10-PCS; principal; 2020-01-14)
PROC: 0UL70CZ Occlusion of Bilateral Fallopian Tubes with Extraluminal Device, Open Approach (ICD-10-PCS; 2020-01-14)
DX: O14.04 Mild to moderate pre-eclampsia, complicating childbirth (principal); O32.8XX0 Maternal care for other malpresentation of fetus, not applicable or unspecified; O34.211 Maternal care for low transverse scar from previous cesarean delivery; Z3A.38 38 weeks gestation of pregnancy; O99.334 Smoking (tobacco) complicating childbirth; F17.210 Nicotine dependence, cigarettes, uncomplicated; F32.9 Major depressive disorder, single episode, unspecified; F41.9 Anxiety disorder, unspecified; O99.344 Other mental disorders complicating childbirth; Z37.0 Single live birth; O99.214 Obesity complicating childbirth; E66.9 Obesity, unspecified; O99.89 Other specified diseases and conditions complicating pregnancy, childbirth and the puerperium; N73.6 Female pelvic peritoneal adhesions (postinfective); Z88.6 Allergy status to analgesic agent; Z30.2 Encounter for sterilization; Z98.84 Bariatric surgery status; L27.1 Localized skin eruption due to drugs and medicaments taken internally; T50.905A Adverse effect of unspecified drugs, medicaments and biological substances, initial encounter; Y92.234 Operating room of hospital as the place of occurrence of the external cause; O99.72 Diseases of the skin and subcutaneous tissue complicating childbirth
CPT/HCPCS: 1961; 36415; 84156; 85025; 85027; 86592; 86850; 86900; 86901; 94760; 94799; 99140; J0131; J0690; J1885; J2270; J2370; J2405; J2590; J3010; J3490; J7120

== ENCOUNTER 2020-02-16 09:54 | Observation (INO) | payer MEDICAID ==
[2020-02-16] MEDS ORDERED: ACETAMINOPHEN 325 MG TABLET PO ONE ×2 (10:15→13:51)
[2020-02-16] MEDS ORDERED: NORMAL SALINE 1000 ML 1,000 ML IV ONE ×3 (11:00→18:05)
[2020-02-16] MEDS ORDERED: ONDANSETRON HCL INJ/PF 4 MG/2 ML SDV IV ONE (11:00)
[2020-02-16 11:31] LABS: ABSOLUTE LYMPHOCYTES (AUTO) 0.9 10^3/uL (0.5-4.7); ABSOLUTE MONOCYTES (AUTO) 0.5 10^3/uL (0.1-1.4); ABSOLUTE NEUT (AUTO) 6.9 10^3/uL (1.7-8.2); BASOPHILS % (AUTO) 0.3 % (0-2); EOSINOPHILS % (AUTO) 0.3 % (0-6); HEMATOCRIT 42.2 % (36.0-47.0); HEMOGLOBIN 14.2 g/dL (12.0-15.5); LYMPHOCYTES % (AUTO) 10.6 % (13-45); MEAN CORPUSCULAR HEMOGLOBIN 30.5 pg (27.0-33.4); MEAN CORPUSCULAR HGB CONC 33.6 g/dL (32.0-36.0); MEAN CORPUSCULAR VOLUME 91 fl (80-97); MONOCYTES % (AUTO) 6.2 % (3-13); PLATELET COUNT 279 10^3/uL (150-450); RED BLOOD COUNT 4.64 10^6/uL (3.72-5.28); RED CELL DISTRIBUTION WIDTH 15.4 % (11.5-14.0); SEGMENTED NEUTROPHILS % (AUTO) 82.6 % (42-78); TOTAL CELLS COUNTED % (AUTO) 100 %; WHITE BLOOD COUNT 8.4 10^3/uL (4.0-10.5)
[2020-02-16 11:37] LABS: ALKALINE PHOSPHATASE 127 U/L (38-126); ANION GAP 9 (5-19); ASPARTATE AMINO TRANSFERASE 24 U/L (14-36); BILIRUBIN,TOTAL 0.5 mg/dL (0.2-1.3); BLOOD UREA NITROGEN 9 mg/dL (7-20); CALCIUM 8.5 mg/dL (8.4-10.2); CARBON DIOXIDE 20 mmol/L (22-30); CHLORIDE 107 mmol/L (98-107); GLUCOSE 101 mg/dL (75-110); POTASSIUM 4.2 mmol/L (3.6-5.0); TOTAL PROTEIN 7.3 g/dL (6.3-8.2)
[2020-02-16 11:42] LABS: APPEARANCE,URINE SLIGHTLY-CLOUDY; BILIRUBIN,URINE NEGATIVE (NEGATIVE); COLOR,URINE YELLOW; GLUCOSE, URINE NEGATIVE (NEGATIVE); KETONES,URINE NEGATIVE (NEGATIVE); LEUKOCYTE ESTERASE,URINE NEGATIVE (NEGATIVE); NITRITE,URINE NEGATIVE (NEGATIVE); PROTEIN,URINE NEGATIVE (NEGATIVE); URINE SPECIFIC GRAVITY 1.013; UROBILINOGEN,URINE NEGATIVE mg/dL (<2.0)
[2020-02-16 13:44] LABS: A TYPE INFLUENZA AG NEGATIVE (NEGATIVE); B INFLUENZA AG NEGATIVE (NEGATIVE)
--- NOTE | 2020-02-16 13:55 | ER Document Report ---
ED General - General Chief Complaint: Cough Stated Complaint: COUGH/CONGESTION/NAUSEA/BACK PAIN Time Seen by Provider: 02/16/20 12:14 Notes: 34-year-old female with no pertinent past medical history presenting today with acute onset of fevers, chills, nausea, vomiting and back pain. States that she recently traveled to [place] on Thursday. States she was only there for a few hours. No known sick contacts. States she woke up with a fever this morning. She received Tylenol around 10:00. Lowered her temperature to around 100 but her temp is now elevated at 102. TRAVEL OUTSIDE OF THE [place] IN LAST 30 DAYS: No - Related Data Allergies/Adverse Reactions: ibuprofen Allergy (Verified 02/16/20 12:46) Past Medical History - Social History Smoking Status: Current Every Day Smoker Frequency of alcohol use: Occasional Family History: Reviewed & Not Pertinent Psychiatric Medical History: Reports: Hx Depression Past Surgical History: Reports: Hx Abdominal Surgery - gastric bypass, Hx Section - x3, Hx Cholecystectomy Physical Exam - Vital signs Vitals: Temp Pulse Resp BP Pulse Ox 102.1 F H 128 H 24 H 95/59 L 100 02/16/20 10:15 02/16/20 10:15 02/16/20 10:15 02/16/20 10:15 02/16/20 10:15 Course - Re-evaluation Re-evalutation: 02/16/20 18:37 Chest x-ray shows no opacities no acute radiographic findings. Patient remains febrile. She is provided Tylenol. Continues to be febrile 101. Her oxygen saturation was 93 on room air. She remains tachypneic and tachycardic. After 2 L bolus and Tylenol. Her venous blood gas shows a pH of 7.43 and a PCO2 of 32.6. Patient was evaluated she continues to be shaking in the bed. States she feels slightly better but she remains mildly tachycardic and tachypneic. O2 sats are now 100% on room air. I discussed with Dr. Stern who recommends CTA prior to calling Hospitalist. CTA was ordered due to her shortness of breath which showed no signs of pulmonary embolism or abnormal findings. Was informed by the nurse that the patient desires to leave. I discussed with patient that I have concerns that she is still febrile, tachycardic and tachypneic that she may be septic at this time and I have concerns that we do not know the cause of her fever. Discussed with her that he has the potential to get worse and to potentially if she leaves against medical advice. I asked directly if patient wants to be admitted she says no. she is agreeable to at least receiving antibiotic treatment at this time. I will go ahead and order vancomycin and Rocephin with additional fluids. I was notified by the nurse that patient is now agreeable to staying. I called the hospitalist who asked me to call back as there is a mild shift change. 02/16/20 20:[address] Macias and discussed patient. Is agreeable to admission of patient. 02/16/20 20:26 - Vital Signs Vital signs: Temp Pulse Resp BP Pulse Ox 99.2 F 117 H 21 H 133/91 H 98 02/16/20 17:10 02/16/20 15:18 02/16/20 19:00 02/16/20 17:37 02/16/20 19:00 - Laboratory Result Diagrams: 02/16/20 10:34 02/16/20 10:34 Laboratory results interpreted by me: 02/16/20 02/16/20 02/16/20 10:34 10:34 11:17 RDW 15.4 H Lymph % (Auto) 10.6 L Seg Neutrophils % 82.6 H VBG pH VBG pCO2 Sodium 136.2 L Carbon Dioxide 20 L Alkaline Phosphatase 127 H Urine Blood SMALL H 02/16/20 16:48 RDW Lymph % (Auto) Seg Neutrophils % VBG pH 7.43 H VBG pCO2 32.6 L Sodium Carbon Dioxide Alkaline Phosphatase Urine Blood Discharge - Discharge Clinical Impression: Fever and chills Condition: Stable Disposition: ADMITTED INPATIENT Admitting Provider: Colleen (Hospitalist) Unit Admitted: IMCU - 3rd floor
--- NOTE | 2020-02-16 15:20 | RADIOLOGY REPORT (SQ) ---
EXAM DESCRIPTION: CHEST SINGLE VIEW IMAGES COMPLETED DATE/TIME: 02/16/2020 2:54 pm REASON FOR STUDY: cough COMPARISON: None. EXAM PARAMETERS: NUMBER OF VIEWS: One view. TECHNIQUE: Single frontal radiographic view of the chest acquired. RADIATION DOSE: NA LIMITATIONS: None. FINDINGS: LUNGS AND PLEURA: No opacities, masses or pneumothorax. No pleural effusion. MEDIASTINUM AND HILAR STRUCTURES: No masses. Contour normal. HEART AND VASCULAR STRUCTURES: Heart normal in size. Normal vasculature. BONES: No acute findings. HARDWARE: None in the chest. OTHER: No other significant finding. IMPRESSION: NO ACUTE RADIOGRAPHIC FINDING IN THE CHEST. TECHNICAL DOCUMENTATION: JOB ID: [id number] 2010 [employer]- All Rights Reserved Reading location - IP/workstation name: [email or web address]
[2020-02-16 17:00] LABS: VENOUS BLOOD BASE EXCESS -2.6 mmol/L; VENOUS BLOOD PCO2 32.6 mmHg (35-63); VENOUS BLOOD PH 7.43 (7.30-7.42)
--- NOTE | 2020-02-16 17:54 | RADIOLOGY REPORT (SQ) ---
EXAM DESCRIPTION: CTA CHEST IMAGES COMPLETED DATE/TIME: 02/16/2020 5:27 pm REASON FOR STUDY: shortness of breath COMPARISON: Chest radiograph TECHNIQUE: CT scan of the chest performed using helical scanning technique with dynamic intravenous contrast injection. Images reviewed with lung, soft tissue and bone windows. Reconstructed coronal and sagittal MPR images reviewed. Additional 3 dimensional post-processing performed to develop Maximal Intensity Projection images (MN P). All images stored on PACS. All CT scanners at this facility use dose modulation, iterative reconstruction, and/or weight based d osing when appropriate to reduce radiation dose to as low as reasonably achievable (ALARA). [facility]: Dose Right [facility]: CareDose [facility]: Dose Right [facility]: Teradose 4D [facility]: ReDent Nova CONTRAST TYPE AND DOSE: contrast/concentration: Isovue 350.00 mmol/ml; Total Contrast Delivered: 67. 0 ml; Total Saline Delivered: 32.9 ml Contrast bolus adequate for pulmonary arteries and aorta. RENAL FUNCTION: None required. The patient is less than 50 years old. RADIATION DOSE: CT Rad equipment meets quality standard of care and radiation dose reduction techniq ues were employed. CTDIvol: 14.9 - 24.5 mGy. DLP: 1007 mGy-cm. . LIMITATIONS: None. FINDINGS: LUNGS AND PLEURA: No masses, infiltrates, or pneumothorax. No pleural effusions or pleura l calcifications. AORTA AND GREAT VESSELS: No aneurysm. Contrast bolus not optimized for the aorta. HEART: No pericardial effusion. No significant coronary artery calcifications. PULMONARY ARTERIES: No emboli visualized in the main pulmonary arteries or the segmental branches. HILAR AND MEDIASTINAL STRUCTURES: No identified masses or abnormal nodes. HARDWARE: None in the chest. UPPER ABDOMEN: No significant findings. Limited exam. THYROID AND OTHER SOFT TISSUES: No masses. No adenopathy. BONES: No acute or significant finding. 3D MIPS: Confirm above findings. OTHER: No other significant finding. IMPRESSION: NORMAL CTA OF THE CHEST. NO PULMONARY EMBOLI. COMMENT: Quality ID # [id number]: Final reports with documentation of one or more dose reduction techniques (e.g., Automated exposure control, adjustment of the mA and/or kV according to patient size, use of iterative reconstruction technique) TECHNICAL DOCUMENTATION: JOB ID: [id number] 2010 [employer]- All Rights Reserved Reading location - IP/workstation name: [email or web address]
[2020-02-16] MEDS ORDERED: VANCOMYCIN HCL INJ 1000 MG VIAL IV ONE (18:06)
[2020-02-16] MEDS ORDERED: CEFTRIAXONE INJ 1000 MG VIAL IV ONE (18:10)
[2020-02-16] MEDS ORDERED: IPRATROPIUM/ALBUTEROL 0.5-2.5 MG/3 ML AMPUL NEB PRN (19:22)
[2020-02-16] MEDS ORDERED: OXYCODONE-ACETAMINOPHEN 5-325 MG TABLET PO PRN (19:22)
[2020-02-16] MEDS ORDERED: ACETAMINOPHEN 325 MG TABLET PO PRN (19:22)
[2020-02-16] MEDS ORDERED: MAGNESIUM HYDROXIDE SUSP 30 ML UDCUP PO PRN (19:22)
[2020-02-16] MEDS ORDERED: NORMAL SALINE 1000 ML 1,000 ML IV PRN (19:22)
[2020-02-16] MEDS ORDERED: ONDANSETRON HCL INJ/PF 4 MG/2 ML SDV IV PRN (19:22)
--- NOTE | 2020-02-16 19:35 | EKG REPORT ---
SEVERITY:- OTHERWISE NORMAL ECG - SINUS TACHYCARDIA : Confirmed by: Namita Monk MD 16-Feb-2020 19:34:43
--- NOTE | 2020-02-16 19:59 | PDOC H&P ---
History of Present Illness History of Present Illness: LEONARDO JOHNSON is a 34 year old female no significant past medical history presenting to ED complaining of sudden onset fever, chills, generalized body ache, nonbloody diarrhea for the last 1 day. Denies any rhinorrhea, shortness of breath, chest pain, headache, nausea, vomiting, abdominal pain, urinary symptoms, loss of taste, loss of smell, numbness, tingling, focal weakness. Denies any exposure to anyone with similar symptoms, went to [place] recently with her family denies being exposed to anyone suspected of having exposure to COVID-19. None of her family members have similar symptoms. In ED she was noted to be tachypneic, tachycardic, with elevated temperature chest x-ray and CTA were unremarkable, no leukocytosis except for mild lymphopenia, given presentation patient was tested for COVID-19. Past Medical History Psychiatric Medical History: Reports: Depression Past Surgical History Past Surgical History: Reports: Section - x3, Cholecystectomy Social History Smoking Status: Current Every Day Smoker Family History Family History: Reviewed & Not Pertinent Parental Family History Reviewed: Yes Children Family History Reviewed: Yes Sibling(s) Family History Reviewed.: Yes Medication/Allergy Home Medications: No122/Iron/Folic Acid [ Multi Tablet] 1 each PO DAILY 01/12/20 Vit C/Ascorb Sod/Multivit-Min [Emergen-C 500 mg Chewable Tab] 1,000 mg PO DAILY 01/12/20 Vit D3/Folic Acid/B2/B6/B12 [Folgard Tablet] 1 each PO ONCE PRN 01/12/20 Diphenhydramine HCl [Benadryl 25 mg Capsule] 25 mg PO Q6 #30 capsule 01/16/20 Hydrocodone/Acetaminophen [[place] 10-325 mg Tablet] 1 tab PO Q4HP PRN #20 tablet 01/16/20 Hydrocortisone [Hydrocortisone 1% Cream 28.35 gm] 1 applic TP TID #1 tube 01/16/20 Naproxen [Naprosyn 250 mg Tablet] 500 mg PO BIDBS #30 tablet 01/16/20 Allergies/Adverse Reactions: ibuprofen Allergy (Verified 02/16/20 12:46) Review of Systems Review of Systems: as per hpi Physical Exam Vital Signs: Temp Pulse Resp BP Pulse Ox 99.2 F 117 H 21 H 133/91 H 98 02/16/20 17:10 02/16/20 15:18 02/16/20 19:00 02/16/20 17:37 02/16/20 19:00 Intake & Output 02/15/20 02/16/20 02/17/20 06:59 06:59 06:59 Intake Total 3000 Balance 3000 Weight 93.894 kg General appearance: PRESENT: no acute distress, obese Head exam: PRESENT: atraumatic, normocephalic Respiratory exam: PRESENT: clear to auscultation mitch, tachypnea. ABSENT: rales, rhonchi, wheezes Cardiovascular exam: PRESENT: RRR, tachycardia. ABSENT: diastolic murmur, rubs, systolic murmur GI/Abdominal exam: PRESENT: normal bowel sounds, soft. ABSENT: distended, guarding, mass, organolmegaly, rebound, tenderness Extremities exam: PRESENT: full ROM. ABSENT: calf tenderness, clubbing, pedal edema Neurological exam: PRESENT: alert, awake, oriented to person, oriented to place, oriented to time, oriented to situation, CN II-XII grossly intact. ABSENT: motor sensory deficit Skin exam: PRESENT: dry, intact, warm. ABSENT: cyanosis, rash Results Laboratory Results: 02/16/20 10:34 02/16/20 10:34 02/16/20 02/16/20 02/16/20 10:34 10:34 10:34 WBC 8.4 RBC 4.64 Hgb 14.2 Hct 42.2 MCV 91 MCH 30.5 MCHC 33.6 RDW 15.4 H Plt Count 279 Seg Neutrophils % 82.6 H VBG pH VBG pCO2 VBG HCO3 VBG Base Excess Sodium 136.2 L Potassium 4.2 Chloride 107 Carbon Dioxide 20 L Anion Gap 9 BUN 9 Creatinine 0.96 Est GFR ( Amer) > 60 Glucose 101 Lactic Acid Calcium 8.5 Total Bilirubin 0.5 AST 24 Alkaline Phosphatase 127 H Total Protein 7.3 Albumin 4.0 Lipase 105.5 Urine Color Urine Appearance Urine pH Ur Specific [place] Urine Protein Urine Glucose (UA) Urine Ketones Urine Blood Urine Nitrite Ur Leukocyte Esterase Urine WBC (Auto) Urine RBC (Auto) 02/16/20 02/16/20 02/16/20 11:17 15:04 16:48 WBC RBC Hgb Hct MCV MCH MCHC RDW Plt Count Seg Neutrophils % VBG pH 7.43 H VBG pCO2 32.6 L VBG HCO3 21.0 VBG Base Excess -2.6 Sodium Potassium Chloride Carbon Dioxide Anion Gap BUN Creatinine Est GFR ( Amer) Glucose Lactic Acid 1.1 Calcium Total Bilirubin AST Alkaline Phosphatase Total Protein Albumin Lipase Urine Color YELLOW Urine Appearance SLIGHTLY-CLOUDY Urine pH 6.0 Ur Specific [place] 1.013 Urine Protein NEGATIVE Urine Glucose (UA) NEGATIVE Urine Ketones NEGATIVE Urine Blood SMALL H Urine Nitrite NEGATIVE Ur Leukocyte Esterase NEGATIVE Urine WBC (Auto) 1 Urine RBC (Auto) 1 02/16/20 10:34 Creatine Kinase 49 Impressions: Chest X-Ray 02/16/20 13:50 IMPRESSION: NO ACUTE RADIOGRAPHIC FINDING IN THE CHEST. Chest/Abdomen CTA 02/16/20 16:48 IMPRESSION: NORMAL CTA OF THE CHEST. NO PULMONARY EMBOLI. Assessment and Plan - Diagnosis (1) Acute respiratory failure with hypoxia Is this a current diagnosis for this admission?: Yes Plan: COVID suspect given presentation. Influenza type A/B negative. Chest x-ray and CTA negative for any acute abnormalities. Admit to IMCU, azithromycin, PRN duo nebs, supplemental oxygen, incentive spirometry and flutter valve. Patient already received 1 dose of vancomycin and Rocephin in ED. Follow-up COVID serology. Follow-up blood culture. (2) Fever and chills Is this a current diagnosis for this admission?: Yes Plan: As per #1. Continue as needed Tylenol and cooling measures. (3) Tobacco abuse Is this a current diagnosis for this admission?: Yes Plan: Counseled on quitting. NicoDerm patch will be provided. (4) Diarrhea Qualifiers: Diarrhea type: presumed infectious Qualified Code(s): R19.7 - Diarrhea, unspecified Is this a current diagnosis for this admission?: Yes Plan: Possibly manifestation of COVID. Denies any recent travel except for going to the beach with family, denies being exposed to anybody with similar symptoms. Denies trying any new restaurants or exotic foods. Monitor volume status and electrolytes replace as needed. Supportive measures. Stool ova and parasite, stool WBC and Gram stain.
[2020-02-16] MEDS ORDERED: AZITHROMYCIN 500 MG in DEXTROSE 5%-WATER 250 ML IV SCH (22:00)
[2020-02-16] MEDS: FAMOTIDINE 20 MG TABLET PO SCH (23:20)
[2020-02-17] MEDS ORDERED: METOPROLOL TARTRATE PF/INJ 5 MG/5 ML SDV IV PRN (00:06)
[2020-02-17] MEDS ORDERED: HYDRALAZINE HCL INJ/PF 20 MG/1 ML SDV IV PRN (00:06)
[2020-02-17] MEDS ORDERED: KETOROLAC TROMETHAMINE INJ/PF 30 MG/1 ML SDV IV ONE (00:45)
[2020-02-17 06:16] LABS: ABSOLUTE LYMPHOCYTES (AUTO) 1.2 10^3/uL (0.5-4.7); ABSOLUTE MONOCYTES (AUTO) 0.4 10^3/uL (0.1-1.4); ABSOLUTE NEUT (AUTO) 4.6 10^3/uL (1.7-8.2); BASOPHILS % (AUTO) 0.5 % (0-2); EOSINOPHILS % (AUTO) 0.7 % (0-6); HEMATOCRIT 35.7 % (36.0-47.0); LYMPHOCYTES % (AUTO) 19.5 % (13-45); MEAN CORPUSCULAR HEMOGLOBIN 30.5 pg (27.0-33.4); MEAN CORPUSCULAR HGB CONC 33.1 g/dL (32.0-36.0); MEAN CORPUSCULAR VOLUME 92 fl (80-97); MONOCYTES % (AUTO) 6.2 % (3-13); PLATELET COUNT 189 10^3/uL (150-450); RED BLOOD COUNT 3.87 10^6/uL (3.72-5.28); RED CELL DISTRIBUTION WIDTH 15.4 % (11.5-14.0); SEGMENTED NEUTROPHILS % (AUTO) 73.1 % (42-78); TOTAL CELLS COUNTED % (AUTO) 100 %; WHITE BLOOD COUNT 6.3 10^3/uL (4.0-10.5)
[2020-02-17 06:19] LABS: HEMOGLOBIN 11.8 g/dL (12.0-15.5)
[2020-02-17] MEDS ORDERED: NORMAL SALINE 1000 ML 1,000 ML IV PRN (07:56)
[2020-02-17] MEDS ORDERED: ASCORBIC ACID 500 MG TABLET PO SCH (10:00)
[2020-02-17] MEDS ORDERED: CHOLECALCIFEROL (D3) 1,000 UNIT (25 MCG) TABLET PO SCH (10:00)
[2020-02-17] MEDS ORDERED: NICOTINE 14 MG/24 HR PATCH.TD24 TD SCH (10:00)
[2020-02-17] MEDS ORDERED: ZINC SULFATE 220 MG CAPSULE PO SCH (10:00)
[2020-02-17] MEDS ORDERED: ENOXAPARIN SODIUM INJ 40 MG/0.4 ML DISP.SYRIN SUBCUT SCH (10:00)
[2020-02-17] MEDS: FAMOTIDINE 20 MG TABLET PO SCH (10:17)
[2020-02-17 15:08] LABS: C DIFFICILE GDH NEGATIVE (NEGATIVE)
--- NOTE | 2020-02-17 17:04 | RADIOLOGY REPORT (SQ) ---
EXAM DESCRIPTION: U/S NON-OB PELVIS LTD W/O DOP IMAGES COMPLETED DATE/TIME: 02/17/2020 4:31 pm REASON FOR STUDY: s/p Csection 1month ago. Fever. R/o pelvic abscess COMPARISON: None. TECHNIQUE: Dynamic and static grayscale images acquired of the pelvis via transabdominal approach an d recorded on PACS. Additional selected color Doppler and spectral images recorded. LIMITATIONS: None. FINDINGS: UTERUS: Contour normal. No mass. ENDOMETRIAL STRIPE: No focal or generalized thickening. No masses. CERVIX: No nabothian cysts. RIGHT OVARY AND DOPPLER: Normal size. No worrisome masses. Normal arterial vascular flow without evid ence for torsion. LEFT OVARY AND DOPPLER: Ovary not visualized. FREE FLUID: None noted. OTHER: No other significant finding. MEASUREMENTS: UTERUS: 9.0 x 5.5 x 6.6 cm ENDOMETRIAL STRIPE: 0.4 cm RIGHT OVARY: 2.7 x 3.1 x 2.5 cm LEFT OVARY: Not visualized. IMPRESSION: Nonvisualization of the left ovary. Normal sonographic appearance of the uterus and rig ht ovary. TECHNICAL DOCUMENTATION: JOB ID: [id number] [employer]- All Rights Reserved Rev-01/01 Reading location - IP/workstation name: [email or web address]
--- NOTE | 2020-02-17 17:35 | PDOC DISCHARGE SUMMARY ---
Impression - Admit/DC Date/PCP Admission Date/Primary Care Provider: 02/16/20 19:42 Discharge Date: 02/17/20 - Discharge Diagnosis (1) Fever and chills Is this a current diagnosis for this admission?: Yes (2) Diarrhea Is this a current diagnosis for this admission?: Yes (3) Gastroenteritis Is this a current diagnosis for this admission?: Yes (4) Tobacco abuse Is this a current diagnosis for this admission?: Yes - Additional Information Discharge Diet: Regular Discharge Activity: Activity As Tolerated Prescriptions: Loperamide HCl [Imodium 2 mg Capsule] 2 mg PO Q6HP PRN #21 cap PRN Reason: Diarrhea Home Medications: Ascorbic Acid [Vitamin C 500 mg Tablet] 500 mg PO DAILY 02/17/20 Loperamide HCl [Imodium 2 mg Capsule] 2 mg PO Q6HP PRN #21 cap 02/17/20 Vit/Dha [ Multi + Dha Capsule] 1 cap PO DAILY 02/17/20 History of Present Illiness History of Present Illness: According to admitting provider: LEONARDO JOHNSON is a 34 year old female no significant past medical history presenting to ED complaining of sudden onset fever, chills, generalized body ache, nonbloody diarrhea for the last 1 day. Denies any rhinorrhea, shortness of breath, chest pain, headache, nausea, vomiting, abdominal pain, urinary symptoms, loss of taste, loss of smell, numbness, tingling, focal weakness. Denies any exposure to anyone with similar symptoms, went to [place] recently with her family denies being exposed to anyone suspected of having exposure to COVID-19. None of her family members have similar symptoms. In ED she was noted to be tachypneic, tachycardic, with elevated temperature chest x-ray and CTA were unremarkable, no leukocytosis except for mild lymphopenia, given presentation patient was tested for COVID-19. Hospital Course Hospital Course: Patient was admitted to the hospital for evaluation of fever and diarrhea. CTA chest was done in the ER which was normal. Chest x-ray also normal. Urinalysis was normal. C. difficile testing was negative. Patient had been initially tachycardic on presentation but resolved after IV fluids administration indicated for dehydration. Patient revealed that she had a about 1 month ago. As a result, I obtained a pelvic ultrasound on patient to rule out pelvic abscess as cause of patient's fever. Pelvic ultrasound was normal with negative for any pelvic fluid. Patient has been tested for COVID-19. Results are still pending at time of discharge. Patient requesting to go home and her vital signs have normalized. I will discharge patient home with Imodium to be used as needed for diarrhea. Skin survey reveals no evidence of infection. Suspect patient has having a viral syndrome or potentially gastroenteritis and does not require any antibiotics at this time. Patient has been instructed to self isolate until she gets the results of a COVID-19 test. She has been instructed to follow-up with her medical record department of the [facility] for the results of her coronavirus test. Physical Exam Vital Signs: Temp Pulse Resp BP Pulse Ox 98.2 F 80 16 106/83 97 02/17/20 12:00 02/17/20 14:00 02/17/20 12:00 02/17/20 12:00 02/17/20 12:00 Intake & Output 02/16/20 02/17/20 02/18/20 06:59 06:59 06:59 Intake Total 3000 1240 Balance 3000 1240 Weight 91 kg General appearance: PRESENT: no acute distress, cooperative Neck exam: ABSENT: JVD Respiratory exam: PRESENT: clear to auscultation mitch, unlabored. ABSENT: tachypnea, wheezes Cardiovascular exam: PRESENT: RRR, +S1, +S2. ABSENT: tachycardia GI/Abdominal exam: PRESENT: soft. ABSENT: rebound, rigid, tenderness Neurological exam: PRESENT: alert, awake, oriented to person, oriented to place, oriented to time Results Laboratory Results: WBC 6.3 10^3/uL (4.0-10.5) 02/17/20 05:28 RBC 3.87 10^6/uL (3.72-5.28) 02/17/20 05:28 Hgb 11.8 g/dL (12.0-15.5) L D 02/17/20 05:28 Hct 35.7 % (36.0-47.0) L 02/17/20 05:28 MCV 92 fl (80-97) 02/17/20 05:28 MCH 30.5 pg (27.0-33.4) 02/17/20 05:28 MCHC 33.1 g/dL (32.0-36.0) 02/17/20 05:28 RDW 15.4 % (11.5-14.0) H 02/17/20 05:28 Plt Count 189 10^3/uL (150-450) 02/17/20 05:28 Lymph % (Auto) 19.5 % (13-45) 02/17/20 05:28 [place] % (Auto) 6.2 % (3-13) 02/17/20 05:28 Eos % (Auto) 0.7 % (0-6) 02/17/20 05:28 Baso % (Auto) 0.5 % (0-2) 02/17/20 05:28 Absolute Neuts (auto) 4.6 10^3/uL (1.7-8.2) 02/17/20 05:28 Absolute Lymphs (auto) 1.2 10^3/uL (0.5-4.7) 02/17/20 05:28 Absolute Monos (auto) 0.4 10^3/uL (0.1-1.4) 02/17/20 05:28 Absolute Eos (auto) 0.0 10^3/uL (0.0-0.6) 02/17/20 05:28 Absolute Basos (auto) 0.0 10^3/uL (0.0-0.2) 02/17/20 05:28 Seg Neutrophils % 73.1 % (42-78) 02/17/20 05:28 VBG pH 7.43 (7.30-7.42) H 02/16/20 16:48 VBG pCO2 32.6 mmHg (35-63) L 02/16/20 16:48 VBG HCO3 21.0 mmol/L (20-32) 02/16/20 16:48 VBG Base Excess -2.6 mmol/L 02/16/20 16:48 Sodium 136.2 mmol/L (137-145) L 02/16/20 10:34 Potassium 4.2 mmol/L (3.6-5.0) 02/16/20 10:34 Chloride 107 mmol/L (98-107) 02/16/20 10:34 Carbon Dioxide 20 mmol/L (22-30) L 02/16/20 10:34 Anion Gap 9 (5-19) 02/16/20 10:34 BUN 9 mg/dL (7-20) 02/16/20 10:34 Creatinine 0.96 mg/dL (0.52-1.25) 02/16/20 10:34 Est GFR ( Amer) > 60 (>60) 02/16/20 10:34 Est GFR (MDRD) Non-Af > 60 (>60) 02/16/20 10:34 Glucose 101 mg/dL (75-110) 02/16/20 10:34 Lactic Acid 1.1 mmol/L (0.7-2.1) 02/16/20 15:04 Calcium 8.5 mg/dL (8.4-10.2) 02/16/20 10:34 Total Bilirubin 0.5 mg/dL (0.2-1.3) 02/16/20 10:34 Direct Bilirubin 0.0 mg/dL (0.0-0.4) 02/16/20 10:34 Neonat Total Bilirubin Not Reportable 02/16/20 10:34 Neonat Direct Bilirubin Not Reportable 02/16/20 10:34 Neonat Indirect Bili Not Reportable 02/16/20 10:34 AST 24 U/L (14-36) 02/16/20 10:34 ALT 15 U/L (<35) 02/16/20 10:34 Alkaline Phosphatase 127 U/L (38-126) H 02/16/20 10:34 Creatine Kinase 49 U/L (30-135) 02/16/20 10:34 Total Protein 7.3 g/dL (6.3-8.2) 02/16/20 10:34 Albumin 4.0 g/dL (3.5-5.0) 02/16/20 10:34 Lipase 105.5 U/L (23-300) 02/16/20 10:34 Urine Color YELLOW 02/16/20 11:17 Urine Appearance SLIGHTLY-CLOUDY 02/16/20 11:17 Urine pH 6.0 (5.0-9.0) 02/16/20 11:17 Ur Specific [place] 1.013 02/16/20 11:17 Urine Protein NEGATIVE mg/dL (NEGATIVE) 02/16/20 11:17 Urine Glucose (UA) NEGATIVE mg/dL (NEGATIVE) 02/16/20 11:17 Urine Ketones NEGATIVE mg/dL (NEGATIVE) 02/16/20 11:17 Urine Blood SMALL (NEGATIVE) H 02/16/20 11:17 Urine Nitrite NEGATIVE (NEGATIVE) 02/16/20 11:17 Urine Bilirubin NEGATIVE (NEGATIVE) 02/16/20 11:17 Urine Urobilinogen NEGATIVE mg/dL (<2.0) 02/16/20 11:17 Ur Leukocyte Esterase NEGATIVE (NEGATIVE) 02/16/20 11:17 Urine WBC (Auto) 1 /HPF 02/16/20 11:17 Urine RBC (Auto) 1 /HPF 02/16/20 11:17 Squamous Epi Cells Auto 3 /HPF 02/16/20 11:17 Urine Mucus (Auto) RARE /LPF 02/16/20 11:17 Urine Ascorbic Acid NEGATIVE (NEGATIVE) 02/16/20 11:17 Urine HCG, Qual NEGATIVE (NEGATIVE) 02/16/20 11:17 Stl C. Difficile GDH Ag NEGATIVE (NEGATIVE) 02/17/20 10:45 Stl C.difficile Tox A&B NEGATIVE (NEGATIVE) 02/17/20 10:45 Influenza A (Rapid) NEGATIVE (NEGATIVE) 02/16/20 12:55 Influenza B (Rapid) NEGATIVE (NEGATIVE) 02/16/20 12:55 Impressions: Chest X-Ray 02/16/20 13:50 IMPRESSION: NO ACUTE RADIOGRAPHIC FINDING IN THE CHEST. Chest/Abdomen CTA 02/16/20 16:48 IMPRESSION: NORMAL CTA OF THE CHEST. NO PULMONARY EMBOLI. Pelvis Ultrasound 02/17/20 00:00 IMPRESSION: Nonvisualization of the left ovary. Normal sonographic appearance of the uterus and right ovary. Plan Time Spent: Less than 30 Minutes Stroke Is this a Stroke Patient?: No Acute Heart Failure - Is this a Heart Failure Patient?: No
[2020-02-17 17:59] VITALS: BP 123/81
== END 2020-02-17 18:16 | disposition home or self-care (01) ==
LOC: ER 09:54 → EH 19:42 → 3N 21:38
PROVIDERS: ADMIT Internal Medicine; ATTEND Internal Medicine
DX: O90.89 Other complications of the puerperium, not elsewhere classified (principal); R50.9 Fever, unspecified; K52.9 Noninfective gastroenteritis and colitis, unspecified; R00.0 Tachycardia, unspecified; D72.810 Lymphocytopenia; J96.01 Acute respiratory failure with hypoxia; Z20.828 Contact with and (suspected) exposure to other viral communicable diseases; F17.200 Nicotine dependence, unspecified, uncomplicated; E86.0 Dehydration; R52 Pain, unspecified; E66.9 Obesity, unspecified; Z90.49 Acquired absence of other specified parts of digestive tract; Z98.84 Bariatric surgery status
CPT/HCPCS: 93005; 99285; 96361; 96375; 96365; 96367; 36415 ×2; 87040; 87086; 82550; 83605; 83690; 85025 ×2; 87635; 81025; 87077; 87088; 80053; 81001; 87186; 82803; 87804; 87324; 87449; 87150 ×26; 71045; 76857; 71275; 93010; G0378 ×3; J3490 ×6; J1885; J1650; J0696; J2405; J7060; J7030 ×2; J3370; J0456; C9803